=== PATIENT | male | born 1955 | race African-American/Black ===

== ENCOUNTER 2017-10-31 11:13 | Inpatient (IN) | payer OTHER ==
[2017-10-31 12:19] VITALS: BMI 15.2
--- NOTE | 2017-10-31 13:03 | HP ---
COWS - Scale Resting Pulse: 1= [place] 81-100 Sweatin= Chills/Flushing Restless Observation: 1= Difficult to Sit Still Pupil Size: 0= Normal to Room Light Bone or Joint Aches: 2= Severe Diffuse Aches Runny Nose/ Eye Tearin= Nasal Congestion GI Upset > 30mins: 1= Stomach Cramp Tremor Observation: 2= Slight Tremor Visible Yawning Observation: 1= 1-2x During Session Anxiety or Irritability: 2=Irritable/Anxious Goose Flesh Skin: 3=Piloerection COWS Score: 15 CIWA Score - CIWA Score Nausea/Vomitin-Mild Nausea/No Vomiting Muscle Tremors: 3 Anxiety: 4-Mod. Anxious/Guarded Agitation: 3 Paroxysmal Sweats: 1-Minimal Palms Moist Orientation: 0-Oriented Tacttile Disturbances: 1-Very Mild Itch/Numbness Auditory Disturbances: 0-None Visual Disturbances: 0-None Headache: 0-None Present CIWA-Ar Total Score: 13 Admission ROS BHS - HPI Chief Complaint: opiate and alcohol withdrawal sx Allergies/Adverse Reactions: Allergies Allergy/AdvReac Type Severity Reaction Status Date / Time aspirin AdvReac Severe cramps Verified 10/31/17 13:00 History of Present Illness: 62 years old male with long history of alcohol and opiate and nicotine dependent has asthma weight loss prostate cancer diagnosted 2010 current chemotherapy every 21 days next chemotherapy appointment 11/08/17 is admitted to detox Exam Limitations: No Limitations - Ebola screening Have you traveled outside of the country in the last 21 days: No (N) Have you had contact with anyone from an Ebola affected area: No Have you been sick,other than usual withdrawal symptoms: No Do you have a fever: No - Review of Systems Constitutional: Loss of Appetite, Changes in sleep, Unintentional Wgt. Loss, Unexplained wgt Loss EENT: reports: No Symptoms Reported Respiratory: reports: SOB with Exertion Cardiac: reports: No Symptoms Reported GI: reports: Nausea, Poor Appetite, Poor Fluid Intake, Abdominal cramping : reports: Frequency, Incontinence (at night) Musculoskeletal: reports: Back Pain, Joint Pain, Muscle Pain, Neck Pain Integumentary: reports: No Symptoms Reported Neuro: reports: Tremors Endocrine: reports: No Symptoms Reported Hematology: reports: No Symptoms Reported Psychiatric: reports: Judgement Intact, Orientated x3, Anxious, Depressed Other Systems: Reviewed and Negative Patient History - Patient Medical History Hx Anemia: No Hx Asthma: Yes Hx Chronic Obstructive Pulmonary Disease (COPD): No Hx Cancer: No Hx Cardiac Disorders: No Hx Congestive Heart Failure: No Hx Hypertension: No Hx Hypercholesterolemia: No Hx Pacemaker: No HX Cerebrovascular Accident: No Hx Seizures: No Hx Dementia: No Hx Diabetes: No Hx Gastrointestinal Disorders: No Hx Liver Disease: No Hx Genitourinary Disorders: No Hx Sexually Transmitted Disorders: No Hx Renal Disease (ESRD): No Hx Thyroid Disease: No Hx Human Immunodeficiency Virus (HIV): No Hx Hepatitis C: No Hx Depression: Yes Hx Suicide Attempt: No Hx Bipolar Disorder: No Hx Schizophrenia: No - Patient Surgical History Past Surgical History: No - PPD History Previous Implant?: Yes Documented Results: Negative w/o proof Implanted On Prior [facility] Admission?: No PPD to be Administered?: Yes - Smoking Cessation Smoking history: Current every day smoker Have you smoked in the past 12 months: Yes Aproximately how many cigarettes per day: 20 Cigars Per Day: 0 Hx Chewing Tobacco Use: No Initiated information on smoking cessation: Yes 'Breaking Loose' booklet given: 10/31/17 - Substance & Tx. History Hx Alcohol Use: Yes Hx Substance Use: Yes Substance Use Type: Alcohol, Heroin, Opiates Hx Substance Use Treatment: Yes ([facility] 09/2017 ) Family Disease History - Family Disease History Family Disease History: [place]: Mother (), Other: Father (), Mother Admission Physical Exam BHS - Vital Signs Vital Signs: Vital Signs - 24 hr 10/31/17 12:16 Temperature 97.9 F Pulse Rate 86 Respiratory 18 Rate Blood Pressure 142/70 - Physical General Appearance: Yes: Appropriately Dressed, Mild Distress, Alcohol on Breath , Thin, Tremorous, Irritable, Sweating, Anxious HEENTM: Yes: Hearing grossly Normal, Normocephalic, Normal Voice Respiratory: Yes: Chest Non-Tender, No Respiratory Distress, No Accessory Muscle Use, Wheezing Neck: Yes: Supple, Trachea in good position Breast: Yes: Breasts Symetrical, No Discharge Cardiology: Yes: Regular Rhythm, Regular Rate, S1, S2 Abdominal: Yes: Normal Bowel Sounds, Non Tender, Flat, Soft Genitourinary: Yes: Frequency, Uregency, Dribblimg Back: Yes: Normal Inspection Musculoskeletal: Yes: full range of Motion, Gait Steady, Back pain, Muscle Pain Extremities: Yes: Normal Inspection, Normal Range of Motion, Non-Tender, Tremors Neurological: Yes: Fully Oriented, Alert, Motor Strength 5/5, Normal Response, Depressed Affect Integumentary: Yes: Warm Lymphatic: Yes: Within Normal Limits - Diagnostic (1) Alcohol dependence with uncomplicated withdrawal Current Visit: Yes Status: Acute (2) Opioid dependence with withdrawal Current Visit: Yes Status: Acute (3) Asthma Current Visit: Yes Status: Chronic Qualifiers: Asthma severity: mild Asthma persistence: intermittent Asthma complication type: with status asthmaticus Qualified Code(s): J45.22 - Mild intermittent asthma with status asthmaticus (4) Nicotine dependence Current Visit: Yes Status: Acute Qualifiers: Nicotine product type: cigarettes Substance use status: in withdrawal Qualified Code(s): F17.213 - Nicotine dependence, cigarettes, with withdrawal (5) Prostate cancer Current Visit: Yes Status: Chronic (6) Anxiety Current Visit: Yes Status: Suspected Cleared for Admission [facility] - Detox or Rehab [facility] Level of Care: Medically Managed Detox Regimen/Protocol: Methadone/Librium [facility] Breath Alcohol Content Breath Alcohol Content: 0.008 Urine Drug Screen - Control Is Test Valid: Yes - Results Drug Screen Negative: No Urine Drug Screen Results: CARROLL-Cocaine, OPI-Opiates, OXY-Oxycodone
[2017-10-31] MEDS ORDERED: ACETAMINOPHEN 325 MG TABLET (FP) PO PRN (13:11)
[2017-10-31] MEDS ORDERED: LOPERAMIDE HCL 2 MG CAPSULE PO PRN (13:11)
[2017-10-31] MEDS ORDERED: NICOTINE POLACRILEX 4 MG GUM BUC PRN (13:11)
[2017-10-31] MEDS ORDERED: MAGNESIUM CITRATE 300 ML BOTTLE PO PRN (13:11)
[2017-10-31] MEDS ORDERED: MENTHOL/PHENOL 1 EACH UD MM PRN (13:11)
[2017-10-31] MEDS ORDERED: P-EPHED 60MG/TRIPROLIDI 2.5MG TABLET PO PRN (13:11)
[2017-10-31] MEDS ORDERED: MAGNESIUM HYDROX 2400MG/30ML ORAL SUSPENSION 30 ML CUP PO PRN (13:11)
[2017-10-31] MEDS ORDERED: MAG HYDROX/AL HYDROX/SIMETH 30 ML UNIT-DOSE CUP PO PRN (13:11)
[2017-10-31] MEDS ORDERED: chlordiazePOXIDE HCL 25 MG CAPSULE PO PRN (13:11)
[2017-10-31] MEDS ORDERED: guaiFENesin/D-METHORPHAN HB 10 ML UNIT-DOSE CUPS PO PRN (13:11)
[2017-10-31] MEDS ORDERED: ALBUTEROL SO4 8 GM HFA INHALER IH PRN (13:14)
[2017-10-31] MEDS ORDERED: METHADONE HCL 10 MG TABLET (FOR DETOX USE ONLY) PO ONE ×2 (14:30→23:00)
[2017-10-31] MEDS ORDERED: METHADONE HCL 10 MG TABLET (FOR DETOX USE ONLY) ONE (17:14)
[2017-10-31] MEDS: chlordiazePOXIDE HCL 25 MG CAPSULE PO SCH ×2 (17:16→22:18)
[2017-10-31] MEDS: NICOTINE 21 MG/24 HOURS TOPICAL PATCH TD SCH (17:17)
[2017-10-31 17:34] LABS: URINE APPEARANCE CLEAR; URINE BILIRUBIN NEGATIVE (<2.0 mg/dL); URINE COLOR YELLOW; URINE GLUCOSE (UA) NEGATIVE (NEGATIVE); URINE KETONE NEGATIVE (NEGATIVE); URINE LEUK ESTERASE NEGATIVE (NEGATIVE); URINE NITRITE NEGATIVE (NEGATIVE); URINE PROTEIN NEGATIVE (NEGATIVE)
[2017-10-31] MEDS: MELATONIN 5 MG TABLETS PO PRN (22:18)
[2017-10-31] MEDS: THIAMINE HCL 100 MG TABLET (FP) PO SCH (22:18)
[2017-11-01] MEDS: chlordiazePOXIDE HCL 25 MG CAPSULE PO SCH ×3 (05:28→10:16)
[2017-11-01 09:48] LABS: HEMATOCRIT 34.1 % (35.4-49); HEMOGLOBIN 11.3 GM/dL (11.7-16.9); MCH 33.1 pg (25.7-33.7); MEAN CELL VOLUME 100.1 fl (80-96); MEAN PLT VOLUME 8.6 fl (7.5-11.1); PLATELET COUNT 211 K/MM3 (134-434); RDW 15.8 % (11.9-15.9); WHITE BLOOD COUNT 20.2 K/mm3 (4.0-10.0)
[2017-11-01] MEDS ORDERED: METHADONE HCL 10 MG TABLET (FOR DETOX USE ONLY) PO SCH (10:00)
[2017-11-01 10:02] LABS: CHLORIDE 103 mmol/L (98-107); SODIUM 140 mmol/L (136-145)
[2017-11-01 10:10] LABS: ALBUMIN 3.7 g/dl (3.4-5.0); ALK PHOS 133 U/L (45-117); ANION GAP 11 (8-16); BILIRUBIN,TOTAL 0.3 mg/dL (0.2-1.0); BLOOD UREA NITROGEN 10 mg/dL (7-18); CALCIUM 8.8 mg/dL (8.5-10.1); CO2 26 mmol/L (21-32); GLUCOSE,RANDOM 88 mg/dL (74-106); SGOT/AST 18 U/L (15-37); SGPT/ALT 26 U/L (12-78); TOT PROT 6.5 g/dl (6.4-8.2)
[2017-11-01] MEDS: NICOTINE 21 MG/24 HOURS TOPICAL PATCH TD SCH (10:14)
[2017-11-01] MEDS: PRENATAL VITAMINS W/ FOLIC ACID TABLET (FP) PO SCH (10:14)
[2017-11-01] MEDS ORDERED: diazePAM 5 MG TABLET PO ONE (11:40)
[2017-11-01] MEDS ORDERED: diazePAM 5 MG TABLET PO PRN ×2 (11:40→11:48)
--- NOTE | 2017-11-01 12:00 | PN ---
[facility] CIWA - CIWA Score Nausea/Vomitin-No Nausea/No Vomiting Muscle Tremors: 4-Moderate,w/Arms Extend Anxiety: 4-Mod. Anxious/Guarded Agitation: 4-Moderately Restless Paroxysmal Sweats: 1-Minimal Palms Moist Orientation: 0-Oriented Tacttile Disturbances: 0-None Auditory Disturbances: 0-None Visual Disturbances: 0-None Headache: 0-None Present CIWA-Ar Total Score: 13 S COWS - Scale Resting Pulse: 1= [place] 81-100 Sweatin= Chills/Flushing Restless Observation: 3= Extraneous Movement Pupil Size: 0= Normal to Room Light Bone or Joint Aches: 1= Mild Discomfort Runny Nose/ Eye Tearin= None GI Upset > 30mins: 0= None Tremor Observation of Outstretched Hands: 1= Tremor [place], Not Seen Yawning Observation: 1= 1-2x During Session Anxiety or Irritability: 2=Irritable/Anxious Goose Flesh Skin: 0=Smooth Skin COWS Score: 10 [facility] Progress Note (SOAP) Subjective: ANXIETY,SWEATS,CHILLS,FATIGUE. PT REFUSED LIBRIUM STATING IT LEAVES A BAD TASTE IN HIS MOUTH AND MAKES HIM SICK. HE IS OPEN TO REPLACEMENT WITH VALIUM. Objective: 11/01/17 12:01 Vital Signs 11/01/17 11/01/17 11/01/17 06:05 06:30 09:28 Temperature 97.6 F 97.0 F L Pulse Rate 82 78 Respiratory 18 18 18 Rate Blood Pressure 142/86 136/78 Laboratory Tests 10/31/17 11/01/17 11/01/17 06:08 06:00 06:00 WBC 20.2 H RBC 3.40 L Hgb 11.3 L Hct 34.1 L MCV 100.1 H MCH 33.1 MCHC 33.0 RDW 15.8 Plt Count 211 MPV 8.6 Sodium 140 Potassium 4.0 Chloride 103 Carbon Dioxide 26 Anion Gap 11 BUN 10 Creatinine 1.0 Creat Clearance w eGFR > 60 Random Glucose 88 Calcium 8.8 Total Bilirubin 0.3 AST 18 ALT 26 Alkaline Phosphatase 133 H Total Protein 6.5 Albumin 3.7 Urine Color Yellow Urine Appearance Clear Urine pH 5.0 Ur Specific [place] 1.015 Urine Protein Negative Urine Glucose (UA) Negative Urine Ketones Negative Urine Blood Negative Urine Nitrite Negative Urine Bilirubin Negative Urine Urobilinogen 2.0 Ur Leukocyte Esterase Negative RPR Titer 11/01/17 06:00 WBC RBC Hgb Hct MCV MCH MCHC RDW Plt Count MPV Sodium Potassium Chloride Carbon Dioxide Anion Gap BUN Creatinine Creat Clearance w eGFR Random Glucose Calcium Total Bilirubin AST ALT Alkaline Phosphatase Total Protein Albumin Urine Color Urine Appearance Urine pH Ur Specific [place] Urine Protein Urine Glucose (UA) Urine Ketones Urine Blood Urine Nitrite Urine Bilirubin Urine Urobilinogen Ur Leukocyte Esterase RPR Titer Nonreactive Assessment: 11/01/17 12:01 WITHDRAWAL SX Plan: CONTINUE DETOX D/C LIBRIUM PROTOCOL START VALIUM TAPER.
[2017-11-01] MEDS: diazePAM 5 MG TABLET PO SCH ×2 (13:58→22:22)
--- NOTE | 2017-11-01 13:58 | EKG ---
Test Reason : Blood Pressure : / mmHG Vent. Rate : 078 BPM Atrial Rate : 078 BPM P-R Int : 130 ms QRS Dur : 074 ms QT Int : 382 ms P-R-T Axes : 078 074 077 degrees QTc Int : 435 ms NORMAL SINUS RHYTHM BIATRIAL ENLARGEMENT NONSPECIFIC ST AND T WAVE ABNORMALITY ABNORMAL ECG NO PREVIOUS ECGS AVAILABLE Confirmed by Marky Acevedo MD ([id number]) on 11/01/2017 1:57:31 PM Referred By: Confirmed By:Marky Acevedo MD
--- NOTE | 2017-11-01 14:23 | CONSULT ---
[facility] Psychiatric Consult - Data Date of interview: 11/01/17 Admission source: [facility] Identifying data: First admission to [facility] for this AA male seeking detox treatment on for heroin,alcohol and cocaine dependence.Patient is ,a father of two,domiciled,unemployed and supported on SSI benefits. Substance Abuse History: Confirmed by patient in this session.Smoking history: Current every day smoker. Have you smoked in the past 12 months: Yes. Aproximately how many cigarettes per day: 20. Cigars Per Day: 0. Hx Chewing Tobacco Use: No. Initiated information on smoking cessation: Yes. 'Breaking Loose' booklet given: 10/31/17. - Substance & Tx. History. Hx Alcohol Use: Yes. Hx Substance Use: Yes. Substance Use Type: Alcohol, Heroin, Opiates. Hx Substance Use Treatment: Yes (i 09/2017 ) Medical History: Cancer of prostate (on chemotherapy) and bronchial asthma. Psychiatric History: Distant history of psychiatric hospitalizations ([facility] and [facility] in [place]).Diagnosed with Bipolar Disorder.Used to be on lithium.Not adherent for past two weeks.No contact with psychiatric OPD care providers.Mr Somers depends on his primary care physician for medications refills.Denies history of suicide attempts. Physical/Sexual Abuse/Trauma History: Patient denies. Additional Comment: Urine Drug Screen Results: CARROLL-Cocaine, OPI-Opiates, OXY- Oxycodone.Noted. Mental Status Exam - Mental Status Exam Alert and Oriented to: Time, Place, Person Cognitive Function: Good Patient Appearance: Well Groomed (thin habitus,tall stature) Mood: Withdrawn Affect: Mood Congruent Patient Behavior: Fatigued, Appropriate, Cooperative Speech Pattern: Clear, Appropriate Voice Loudness: Normal Thought Process: Goal Oriented Thought Disorder: Not Present Hallucinations: Denies Suicidal Ideation: Denies Homicidal Ideation: Denies Insight/Judgement: Poor Sleep: Fair Appetite: Good Muscle strength/Tone: Normal Gait/Station: Normal Psychiatric Findings - Problem List ([place] 1, 2,3) (1) Opioid dependence with withdrawal Current Visit: Yes Status: Acute (2) Alcohol dependence with uncomplicated withdrawal Current Visit: Yes Status: Acute (3) Cocaine dependence Current Visit: Yes Status: Acute (4) Nicotine dependence Current Visit: Yes Status: Acute Qualifiers: Nicotine product type: cigarettes Substance use status: in withdrawal Qualified Code(s): F17.213 - Nicotine dependence, cigarettes, with withdrawal (5) Substance induced mood disorder Current Visit: Yes Status: Acute (6) History of bipolar disorder Current Visit: Yes Status: Acute (7) Non compliance w medication regimen Current Visit: Yes Status: Chronic - Initial Treatment Plan Initial Treatment Plan: Psychoeducation.Sleep hygiene.Detoxification in progress.[place] level in AM.Observation.
--- NOTE | 2017-11-01 14:58 | EKG ---
Test Reason : Blood Pressure : / mmHG Vent. Rate : 075 BPM Atrial Rate : 075 BPM P-R Int : 130 ms QRS Dur : 074 ms QT Int : 388 ms P-R-T Axes : 078 076 115 degrees QTc Int : 433 ms NORMAL SINUS RHYTHM NONSPECIFIC ST AND T WAVE ABNORMALITY ABNORMAL ECG WHEN COMPARED WITH ECG OF 31-OCT-2017 16:39, T WAVE INVERSION MORE EVIDENT IN ANTERIOR LEADS Confirmed by Marky Acevedo MD ([id number]) on 11/01/2017 2:58:45 PM Referred By: Confirmed By:Marky Acevedo MD
[2017-11-01] MEDS ORDERED: chlordiazePOXIDE HCL 25 MG CAPSULE PO SCH (17:00)
[2017-11-01] MEDS ORDERED: diazePAM 5 MG TABLET PO SCH (22:00)
[2017-11-01] MEDS: THIAMINE HCL 100 MG TABLET (FP) PO SCH (22:22)
[2017-11-01] MEDS: VITAMINS A AND D TOPICAL OINTMENT 60 GM TUBE TP SCH (22:22)
[2017-11-01] MEDS: MELATONIN 5 MG TABLETS PO PRN (22:23)
[2017-11-02] MEDS: diazePAM 5 MG TABLET PO SCH ×3 (05:58→23:03)
[2017-11-02] MEDS: VITAMINS A AND D TOPICAL OINTMENT 60 GM TUBE TP SCH ×2 (10:19→23:06)
[2017-11-02] MEDS: NICOTINE 21 MG/24 HOURS TOPICAL PATCH TD SCH (10:19)
[2017-11-02] MEDS: PRENATAL VITAMINS W/ FOLIC ACID TABLET (FP) PO SCH (10:19)
[2017-11-02] MEDS: METHADONE HCL 5 MG TABLET (FOR DETOX USE ONLY) PO SCH (10:19)
--- NOTE | 2017-11-02 11:14 | PN ---
[facility] CIWA - CIWA Score Nausea/Vomitin-No Nausea/No Vomiting Muscle Tremors: 3 Anxiety: 3 Agitation: 3 Paroxysmal Sweats: 1-Minimal Palms Moist Orientation: 0-Oriented Tacttile Disturbances: 0-None Auditory Disturbances: 0-None Visual Disturbances: 0-None Headache: 0-None Present CIWA-Ar Total Score: 10 [facility] COWS - Scale Resting Pulse: 1= [place] 81-100 Sweatin= Chills/Flushing Restless Observation: 3= Extraneous Movement Pupil Size: 0= Normal to Room Light Bone or Joint Aches: 1= Mild Discomfort Runny Nose/ Eye Tearin= None GI Upset > 30mins: 0= None Tremor Observation of Outstretched Hands: 1= Tremor [place], Not Seen Yawning Observation: 1= 1-2x During Session Anxiety or Irritability: 2=Irritable/Anxious Goose Flesh Skin: 0=Smooth Skin COWS Score: 10 S Progress Note (SOAP) Subjective: ANXIETY,SWEATS,CHILLS,FATIGUE Objective: 11/02/17 11:13 Vital Signs 11/02/17 11/02/17 11/02/17 03:30 06:06 06:30 Temperature 97.1 F L Pulse Rate 80 Respiratory 18 18 18 Rate Blood Pressure 108/68 11/02/17 09:15 Temperature 98.5 F Pulse Rate 81 Respiratory 20 Rate Blood Pressure 108/57 Laboratory Tests 10/31/17 11/01/17 11/01/17 06:08 06:00 06:00 WBC 20.2 H RBC 3.40 L Hgb 11.3 L Hct 34.1 L MCV 100.1 H MCH 33.1 MCHC 33.0 RDW 15.8 Plt Count 211 MPV 8.6 Sodium 140 Potassium 4.0 Chloride 103 Carbon Dioxide 26 Anion Gap 11 BUN 10 Creatinine 1.0 Creat Clearance w eGFR > 60 Random Glucose 88 Calcium 8.8 Total Bilirubin 0.3 AST 18 ALT 26 Alkaline Phosphatase 133 H Total Protein 6.5 Albumin 3.7 Urine Color Yellow Urine Appearance Clear Urine pH 5.0 Ur Specific [place] 1.015 Urine Protein Negative Urine Glucose (UA) Negative Urine Ketones Negative Urine Blood Negative Urine Nitrite Negative Urine Bilirubin Negative Urine Urobilinogen 2.0 Ur Leukocyte Esterase Negative RPR Titer 11/01/17 06:00 WBC RBC Hgb Hct MCV MCH MCHC RDW Plt Count MPV Sodium Potassium Chloride Carbon Dioxide Anion Gap BUN Creatinine Creat Clearance w eGFR Random Glucose Calcium Total Bilirubin AST ALT Alkaline Phosphatase Total Protein Albumin Urine Color Urine Appearance Urine pH Ur Specific [place] Urine Protein Urine Glucose (UA) Urine Ketones Urine Blood Urine Nitrite Urine Bilirubin Urine Urobilinogen Ur Leukocyte Esterase RPR Titer Nonreactive Assessment: 11/02/17 11:13 WITHDRAWAL SX Plan: CONTINUE DETOX REPEAT CBC IN AM.
[2017-11-02] MEDS ORDERED: chlordiazePOXIDE 5 MG CAPSULE PO SCH (17:00)
[2017-11-02] MEDS: MELATONIN 5 MG TABLETS PO PRN (23:03)
[2017-11-02] MEDS: THIAMINE HCL 100 MG TABLET (FP) PO SCH (23:03)
[2017-11-03] MEDS ORDERED: diazePAM 5 MG TABLET PO SCH (10:00)
[2017-11-03 10:02] LABS: HEMATOCRIT 32.9 % (35.4-49); MCH 33.6 pg (25.7-33.7); MCHC 33.5 g/dl (32.0-35.9); MEAN CELL VOLUME 100.2 fl (80-96); MEAN PLT VOLUME 8.8 fl (7.5-11.1); PLATELET COUNT 185 K/MM3 (134-434); RBC 3.28 M/mm3 (4.00-5.60); RDW 15.3 % (11.9-15.9)
[2017-11-03] MEDS: PRENATAL VITAMINS W/ FOLIC ACID TABLET (FP) PO SCH (10:33)
[2017-11-03] MEDS: diazePAM 5 MG TABLET PO SCH ×2 (10:33→22:14)
[2017-11-03] MEDS: METHADONE HCL 5 MG TABLET (FOR DETOX USE ONLY) PO SCH (10:34)
[2017-11-03] MEDS: NICOTINE 21 MG/24 HOURS TOPICAL PATCH TD SCH (10:34)
[2017-11-03] MEDS: VITAMINS A AND D TOPICAL OINTMENT 60 GM TUBE TP SCH ×2 (10:34→22:15)
--- NOTE | 2017-11-03 11:07 | PN ---
[facility] Progress Note (SOAP) Subjective: SLIGHT ANXIETY,CHILLS,FATIGUE. ALERT O X 3. NAD. Objective: 11/03/17 11:03 Vital Signs 11/03/17 11/03/17 11/03/17 03:30 05:55 06:30 Temperature 98.4 F Pulse Rate 88 Respiratory 18 18 18 Rate Blood Pressure 107/57 11/03/17 09:20 Temperature 98.5 F Pulse Rate 73 Respiratory 18 Rate Blood Pressure 121/68 Laboratory Tests 10/31/17 11/01/17 11/01/17 06:08 06:00 06:00 WBC 20.2 H RBC 3.40 L Hgb 11.3 L Hct 34.1 L MCV 100.1 H MCH 33.1 MCHC 33.0 RDW 15.8 Plt Count 211 MPV 8.6 Sodium 140 Potassium 4.0 Chloride 103 Carbon Dioxide 26 Anion Gap 11 BUN 10 Creatinine 1.0 Creat Clearance w eGFR > 60 Random Glucose 88 Calcium 8.8 Total Bilirubin 0.3 AST 18 ALT 26 Alkaline Phosphatase 133 H Total Protein 6.5 Albumin 3.7 Urine Color Yellow Urine Appearance Clear Urine pH 5.0 Ur Specific [place] 1.015 Urine Protein Negative Urine Glucose (UA) Negative Urine Ketones Negative Urine Blood Negative Urine Nitrite Negative Urine Bilirubin Negative Urine Urobilinogen 2.0 Ur Leukocyte Esterase Negative RPR Titer 11/01/17 11/03/17 06:00 08:00 WBC 14.0 H RBC 3.28 L Hgb 11.0 L Hct 32.9 L MCV 100.2 H MCH 33.6 MCHC 33.5 RDW 15.3 Plt Count 185 MPV 8.8 Sodium Potassium Chloride Carbon Dioxide Anion Gap BUN Creatinine Creat Clearance w eGFR Random Glucose Calcium Total Bilirubin AST ALT Alkaline Phosphatase Total Protein Albumin Urine Color Urine Appearance Urine pH Ur Specific [place] Urine Protein Urine Glucose (UA) Urine Ketones Urine Blood Urine Nitrite Urine Bilirubin Urine Urobilinogen Ur Leukocyte Esterase RPR Titer Nonreactive LABS NOTED. RECENT WBC MUCH IMPROVED FROM PREVIOUS. 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 Assessment: 11/03/17 11:07 WITHDRAWAL SX Plan: CONTINUE DETOX
[2017-11-03] MEDS: FERROUS SO4 325 MG TABLET (FP) PO SCH (11:51)
--- NOTE | 2017-11-03 14:57 | PN ---
[facility] Progress Note Note: PATIENT REPORTS THAT HE HIT HIS LEFT FOOT ON BASE OF BEDSIDE TABLE WHEN GETTING OUT OF BED. PATIENT REPORTS MILD DISCOMFORT IN AREA. PATIENT DENIES FALL TO FLOOR, INJURY TO HEAD, AND LOC. PATIENT ABLE TO AMBULATE UNASSISTED. MILD BRUISING AND SWELLING NOTED IN BIG TOE. PATIENT ABLE TO FLEX TOES AND FOOT WITH DIFFICULTY. [facility] CLOSED AT THIS TIME. PATIENT AMENABLE TO WAITING UNTIL TOMORROW AM TO HAVE X-RAY OF LEFT FOOT DONE. PATIENT ADVISED TO ELEVATE FOOT, APPLY ICE PRN, TYLENOL PRN PAIN. Gabrielle CASTILLO NP
[2017-11-03] MEDS ORDERED: chlordiazePOXIDE HCL 10 MG CAPSULE PO SCH (17:00)
[2017-11-03] MEDS: THIAMINE HCL 100 MG TABLET (FP) PO SCH (22:14)
[2017-11-03] MEDS: MELATONIN 5 MG TABLETS PO PRN (22:16)
[2017-11-04] MEDS ORDERED: METHADONE HCL 10 MG TABLET (FOR DETOX USE ONLY) PO SCH (10:00)
[2017-11-04] MEDS: PRENATAL VITAMINS W/ FOLIC ACID TABLET (FP) PO SCH (10:46)
[2017-11-04] MEDS: FERROUS SO4 325 MG TABLET (FP) PO SCH (10:46)
[2017-11-04] MEDS: diazePAM 5 MG TABLET PO SCH ×2 (10:46→22:28)
[2017-11-04] MEDS: VITAMINS A AND D TOPICAL OINTMENT 60 GM TUBE TP SCH ×2 (10:46→22:28)
[2017-11-04] MEDS: NICOTINE 21 MG/24 HOURS TOPICAL PATCH TD SCH (10:47)
--- NOTE | 2017-11-04 12:22 | PN ---
[facility] Progress Note (SOAP) Subjective: PT SEEN IN BED. C/O PAIN TO LEFT FOOT GREAT TOE REPORTING BUMPED AGAINST BEDSIDE TABLE YESTERDAY. Objective: 11/04/17 12:20 Vital Signs 11/04/17 11/04/17 06:17 09:14 Temperature 99.1 F 98.7 F Pulse Rate 85 76 Respiratory 16 15 Rate Blood Pressure 112/67 109/64 Laboratory Tests 10/31/17 11/01/17 11/01/17 06:08 06:00 06:00 WBC 20.2 H RBC 3.40 L Hgb 11.3 L Hct 34.1 L MCV 100.1 H MCH 33.1 MCHC 33.0 RDW 15.8 Plt Count 211 MPV 8.6 Sodium 140 Potassium 4.0 Chloride 103 Carbon Dioxide 26 Anion Gap 11 BUN 10 Creatinine 1.0 Creat Clearance w eGFR > 60 Random Glucose 88 Calcium 8.8 Total Bilirubin 0.3 AST 18 ALT 26 Alkaline Phosphatase 133 H Total Protein 6.5 Albumin 3.7 Urine Color Yellow Urine Appearance Clear Urine pH 5.0 Ur Specific [place] 1.015 Urine Protein Negative Urine Glucose (UA) Negative Urine Ketones Negative Urine Blood Negative Urine Nitrite Negative Urine Bilirubin Negative Urine Urobilinogen 2.0 Ur Leukocyte Esterase Negative RPR Titer 11/01/17 11/03/17 06:00 08:00 WBC 14.0 H RBC 3.28 L Hgb 11.0 L Hct 32.9 L MCV 100.2 H MCH 33.6 MCHC 33.5 RDW 15.3 Plt Count 185 MPV 8.8 Sodium Potassium Chloride Carbon Dioxide Anion Gap BUN Creatinine Creat Clearance w eGFR Random Glucose Calcium Total Bilirubin AST ALT Alkaline Phosphatase Total Protein Albumin Urine Color Urine Appearance Urine pH Ur Specific [place] Urine Protein Urine Glucose (UA) Urine Ketones Urine Blood Urine Nitrite Urine Bilirubin Urine Urobilinogen Ur Leukocyte Esterase RPR Titer Nonreactive LEFT FOOT EXAM TODAY: PASSIVE ROM TO ALL TOES. SLIGHT PAIN ON DORSIFLEXION OF LEFT GREAT TOE. NO PAIN ON ALL OTHER FOUR TOES. IMPRESSION XRAY LEFT FOOT:ST METALLIC DENSITIES. ARTHRITIC CHANGES. NO ACUTE PATHOLOGY APPRECIATED(FULL REPORT IN CHART). Assessment: 11/04/17 12:20 WITHDRAWAL SX PAIN LEFT GREAT TOE. Plan: CONTINUE DETOX COLD COMPRESS TO LEFT TOE TID DIRECTED. FIRST TX YOVANNY NOW
[2017-11-04] MEDS: THIAMINE HCL 100 MG TABLET (FP) PO SCH (22:28)
[2017-11-05] MEDS ORDERED: METHADONE HCL 5 MG TABLET (FOR DETOX USE ONLY) PO SCH (06:00)
[2017-11-05 06:25] VITALS: BP 109/72; PULSE 83; TEMP 97
[2017-11-05] MEDS: FERROUS SO4 325 MG TABLET (FP) PO SCH (09:05)
[2017-11-05] MEDS: VITAMINS A AND D TOPICAL OINTMENT 60 GM TUBE TP SCH (09:36)
[2017-11-05] MEDS: PRENATAL VITAMINS W/ FOLIC ACID TABLET (FP) PO SCH (09:37)
[2017-11-05] MEDS: NICOTINE 21 MG/24 HOURS TOPICAL PATCH TD SCH (09:38)
[2017-11-05] MEDS ORDERED: diazePAM 5 MG TABLET PO SCH (10:00)
--- NOTE | 2017-11-05 19:16 | PN ---
[facility] Progress Note (SOAP) Subjective: Patient denies current Detox symptoms and reports that he feels well overall. Objective: PATIENT A & O X 3, OBSERVED AMBULATING ON UNIT. NO ACUTE DISTRESS. 11/05/17 19:15 Vital Signs Temperature 97.0 F L 11/05/17 06:24 Pulse Rate 83 11/05/17 06:24 Respiratory Rate 18 11/05/17 06:30 Blood Pressure 109/72 11/05/17 06:24 O2 Sat by Pulse Oximetry (%) Laboratory Tests 10/31/17 11/01/17 11/01/17 06:08 06:00 06:00 WBC 20.2 H RBC 3.40 L Hgb 11.3 L Hct 34.1 L MCV 100.1 H MCH 33.1 MCHC 33.0 RDW 15.8 Plt Count 211 MPV 8.6 Sodium 140 Potassium 4.0 Chloride 103 Carbon Dioxide 26 Anion Gap 11 BUN 10 Creatinine 1.0 Creat Clearance w eGFR > 60 Random Glucose 88 Calcium 8.8 Total Bilirubin 0.3 AST 18 ALT 26 Alkaline Phosphatase 133 H Total Protein 6.5 Albumin 3.7 Urine Color Yellow Urine Appearance Clear Urine pH 5.0 Ur Specific [place] 1.015 Urine Protein Negative Urine Glucose (UA) Negative Urine Ketones Negative Urine Blood Negative Urine Nitrite Negative Urine Bilirubin Negative Urine Urobilinogen 2.0 Ur Leukocyte Esterase Negative RPR Titer 11/01/17 11/03/17 06:00 08:00 WBC 14.0 H RBC 3.28 L Hgb 11.0 L Hct 32.9 L MCV 100.2 H MCH 33.6 MCHC 33.5 RDW 15.3 Plt Count 185 MPV 8.8 Sodium Potassium Chloride Carbon Dioxide Anion Gap BUN Creatinine Creat Clearance w eGFR Random Glucose Calcium Total Bilirubin AST ALT Alkaline Phosphatase Total Protein Albumin Urine Color Urine Appearance Urine pH Ur Specific [place] Urine Protein Urine Glucose (UA) Urine Ketones Urine Blood Urine Nitrite Urine Bilirubin Urine Urobilinogen Ur Leukocyte Esterase RPR Titer Nonreactive LABS NOTED. Assessment: 11/05/17 19:15 COMPLETION OF DETOX REGIMEN. Plan: PATIENT SCHEDULED FOR DISCHARGE FROM DETOX UNIT TODAY.
--- NOTE | 2017-11-05 19:20 | DS ---
[facility] Detox Discharge Summary Admission Date: 10/31/17 Discharge Date: 11/05/17 - History Present History: Alcohol Dependence, Cocaine Dependence, Opioid Dependence Additional Comments: NO BEDS ARE AVAILABLE AT [facility] TODAY. THUS, PATIENT WILL RETURN HOME FOR NEXT COUPLE OF NIGHTS, THEN CONTACT [facility] ADMISSIONS DEPT. ON 11/07/2017 TO INQUIRE ABOUT ADMISSION / BED AVAILABILITY AT THAT TIME. PATIENT WAS DISCHARGED FROM DETOX UNIT IN STABLE MEDICAL CONDITION. Pertinent Past History: History of Prostate Cancer, Leukocytosis, Anemia, Nicotine Dependence, History of Bipolar Disorder, Asthma. - Physical Exam Results Vital Signs: Vital Signs Temperature 97.0 F L 11/05/17 06:24 Pulse Rate 83 11/05/17 06:24 Respiratory Rate 18 11/05/17 06:30 Blood Pressure 109/72 11/05/17 06:24 O2 Sat by Pulse Oximetry (%) Pertinent Admission Physical Exam Findings: WITHDRAWAL SYMPTOMS. Laboratory Tests 10/31/17 11/01/17 11/01/17 06:08 06:00 06:00 WBC 20.2 H RBC 3.40 L Hgb 11.3 L Hct 34.1 L MCV 100.1 H MCH 33.1 MCHC 33.0 RDW 15.8 Plt Count 211 MPV 8.6 Sodium 140 Potassium 4.0 Chloride 103 Carbon Dioxide 26 Anion Gap 11 BUN 10 Creatinine 1.0 Creat Clearance w eGFR > 60 Random Glucose 88 Calcium 8.8 Total Bilirubin 0.3 AST 18 ALT 26 Alkaline Phosphatase 133 H Total Protein 6.5 Albumin 3.7 Urine Color Yellow Urine Appearance Clear Urine pH 5.0 Ur Specific [place] 1.015 Urine Protein Negative Urine Glucose (UA) Negative Urine Ketones Negative Urine Blood Negative Urine Nitrite Negative Urine Bilirubin Negative Urine Urobilinogen 2.0 Ur Leukocyte Esterase Negative RPR Titer 11/01/17 11/03/17 06:00 08:00 WBC 14.0 H RBC 3.28 L Hgb 11.0 L Hct 32.9 L MCV 100.2 H MCH 33.6 MCHC 33.5 RDW 15.3 Plt Count 185 MPV 8.8 Sodium Potassium Chloride Carbon Dioxide Anion Gap BUN Creatinine Creat Clearance w eGFR Random Glucose Calcium Total Bilirubin AST ALT Alkaline Phosphatase Total Protein Albumin Urine Color Urine Appearance Urine pH Ur Specific [place] Urine Protein Urine Glucose (UA) Urine Ketones Urine Blood Urine Nitrite Urine Bilirubin Urine Urobilinogen Ur Leukocyte Esterase RPR Titer Nonreactive LABS NOTED. - Treatment Hospital Course: Detox Protocol Followed, Detoxed Safely, Responded well, Discharged Condition Good, Rehab Referral Accepted Patient has Accepted a Rehab Referral to: [facility] ([place], [place] . - Medication Discharge Medications: Ambulatory Orders Albuterol Sulfate Inhaler - [Ventolin Hfa Inhaler -] 2 inh PO Q4H PRN #1 inhaler 11/05/17 - Diagnosis (1) Opioid dependence with withdrawal Status: Acute (2) Alcohol dependence with uncomplicated withdrawal Status: Acute (3) Anemia Status: Acute Qualifiers: Anemia type: unspecified type Qualified Code(s): D64.9 - Anemia, unspecified (4) Cocaine dependence Status: Acute Qualifiers: Substance use status: uncomplicated Qualified Code(s): F14.20 - Cocaine dependence, uncomplicated (5) History of bipolar disorder Status: Acute (6) Leucocytosis Status: Acute Qualifiers: Leukocytosis type: unspecified Qualified Code(s): D72.829 - Elevated white blood cell count, unspecified (7) Nicotine dependence Status: Acute Qualifiers: Nicotine product type: cigarettes Substance use status: in withdrawal Qualified Code(s): F17.213 - Nicotine dependence, cigarettes, with withdrawal (8) Substance induced mood disorder Status: Acute (9) Asthma Status: Chronic Qualifiers: Asthma severity: mild Asthma persistence: unspecified Asthma complication type: uncomplicated Qualified Code(s): J45.909 - Unspecified asthma, uncomplicated (10) Non compliance w medication regimen Status: Chronic (11) Prostate cancer Status: Chronic (12) Anxiety Status: Suspected - AMA Did Patient Leave Against Medical Advice: No
== END 2017-11-05 09:48 | disposition home or self-care (01) | DRG 773 ==
LOC: YASAS 11:13 → Y3N 14:22
PROVIDERS: ADMIT Surgery; ATTEND Surgery
PROC: HZ2ZZZZ Detoxification Services for Substance Abuse Treatment (ICD-10-PCS; principal; 2017-10-31)
DX: F11.23 Opioid dependence with withdrawal (principal); F10.230 Alcohol dependence with withdrawal, uncomplicated; F14.20 Cocaine dependence, uncomplicated; F17.213 Nicotine dependence, cigarettes, with withdrawal; F19.24 Other psychoactive substance dependence with psychoactive substance-induced mood disorder; F41.9 Anxiety disorder, unspecified; F31.9 Bipolar disorder, unspecified; C61 Malignant neoplasm of prostate; D64.9 Anemia, unspecified; D72.829 Elevated white blood cell count, unspecified; J45.909 Unspecified asthma, uncomplicated; R63.4 Abnormal weight loss; Z68.1 Body mass index [BMI] 19.9 or less, adult; Z91.14 Patient's other noncompliance with medication regimen; Z59.0 Homelessness
CPT/HCPCS: 36415; 71046-TC-FY; 73630-TC-LT; 80053; 81003; 85027; 86593; 93005; 93010